=== PATIENT | female | born 1965 | race Caucasian/White ===

== ENCOUNTER 2018-04-05 14:49 | Outpatient (CLI) | payer OTHER ==
[2018-04-05] MEDS ORDERED: Iopamidol 370 76% 100 ML VIAL ONE (16:19)
--- NOTE | 2018-04-05 17:08 | CT ---
CT OF THE ABDOMEN AND PELVIS WITH IV CONTRAST 04/05/18 INDICATION: Right lower quadrant abdominal pain with history of diverticulosis. History of cholecystectomy, appen dectomy, hysterectomy and hernia repair. COMPARISON: Prior CT of the abdomen and pelvis dated 03/26/14 from [facility]. FINDINGS: The lung bases are clear. No focal hepatic lesion is evident. Gallbladder is surgically absent. The pancreas, adrenal glands, a nd spleen appear within normal limits. Kidneys are normal appearing. There is a small cyst seen invol ving the mid left kidney. No hydronephrosis is evident. No free fluid or enlarged lymph nodes are not ed. There is scattered diverticula involving the colon without evidence of active diverticulitis. There i s a mild amount of retained stool within the colon. The appendix is surgically absent. The uterus is surgically absent. The adnexa are not definitely seen and may be surgically absent. The bladder is de compressed. No definite acute osseous abnormality is evident. IMPRESSION: No CT explanation for the patient's abdominal pain. POS: ANITHA
== END 2018-04-05 14:50 | disposition home or self-care (01) ==
LOC: BICCT 14:49
PROVIDERS: ATTEND Physician Assistant Medical
DX: K57.30 Diverticulosis of large intestine without perforation or abscess without bleeding (principal); R10.31 Right lower quadrant pain
CPT/HCPCS: 74177

== ENCOUNTER 2018-06-28 10:45 | Outpatient (CLI) | payer OTHER ==
--- NOTE | 2018-06-28 12:03 | BD ---
DEXA Bone Density History: 52-year-old post-menopausal female for screening. Comparison: 04-12-12 Lumbar Spine: BMD (g/cm2) L1 0.810 T-Score: -1.6 L2 0.939 T-Score: -0.8 L3 0.870 T-Score: -1.9 L4 0.805 T-Score: -2.3 L1-L4 0.855 T-Score: -1.7 Femoral Neck: 0.587 T-Score: -2.4 Total Femur: 0.773 T-Score: -1.4 Impression: Osteopenia. This patient has an approximately 6x increased risk for fracture when compared with young patients with normal bone mineral density. POS: C
== END 2018-06-28 10:46 | disposition home or self-care (01) ==
LOC: BICMAMMO 10:45
PROVIDERS: ATTEND Internal Medicine Rheumatology
DX: M81.0 Age-related osteoporosis without current pathological fracture (principal); M85.89 Other specified disorders of bone density and structure, multiple sites
CPT/HCPCS: 77080

== ENCOUNTER 2019-03-31 06:31 | Outpatient (CLI) | payer OTHER ==
[2019-03-31 13:30] LABS: #Basophils 0.1 thou/uL (0.0-0.2); #Eosinphils 0.1 thou/uL (0.0-0.7); #Lymphocytes 3.6 thou/uL (1.20-3.40); #Monocytes 0.8 thou/uL (0.11-0.59); #Neutrophils 5.3 thou/uL (1.40-6.50); %Basophils 0.7 % (0.0-1.0); %Eosinophils 1.4 % (0.0-10.0); %Lymphocytes 36.5 % (21.0-51.0); %Monocytes 8.1 % (0.0-10.0); %Neutrophils 53.3 % (42.0-75.0); Hemoglobin 12.7 g/dL (12.0-16.0); Mean Corpuscular HGB CONC 33.3 g/dL (32.0-36.0); Mean Corpuscular Hemoglobin 30.3 pg (27.0-31.0); Mean Platelet Volume 8.2 fL (7.4-10.4); Platelet Count 267 thou/uL (130-400); RBC Distribution Width 11.2 % (11.5-14.5); Red Blood Cell (RBC) Count 4.18 mill/uL (4.20-5.40); White Blood Cell (WBC) Count 9.9 thou/uL (4.8-10.8)
[2019-03-31 13:46] LABS: Anion Gap 11 mmol/L (10-20); BUN (Urea Nitrogen) 17 mg/dL (9.8-20.1); Calc. Creatinine Clearance 0 mL/min (70-130); Calcium 9.4 mg/dL (7.8-10.44); Carbon Dioxide 26 mmol/L (22-29); Chloride 106 mmol/L (98-107); Estimated GFR-MDRD 66; Glucose 80 mg/dL (70-105); Potassium 3.7 mmol/L (3.5-5.1); Sodium 139 mmol/L (136-145)
== END 2019-03-31 06:32 | disposition home or self-care (01) ==
LOC: LABBT 06:31
PROVIDERS: ATTEND Specialist
DX: Z01.812 Encounter for preprocedural laboratory examination (principal); K44.9 Diaphragmatic hernia without obstruction or gangrene; K21.9 Gastro-esophageal reflux disease without esophagitis
CPT/HCPCS: 80048; 85025

== ENCOUNTER 2019-04-08 06:04 | Day surgery (SDC) | payer OTHER ==
[2019-03-31 11:39] VITALS: BMI 30.1
[2019-04-08] MEDS ORDERED: cefOXitin 2 GM VIAL ONE (06:22)
[2019-04-08] MEDS ORDERED: Sodium Chloride 0.9% 100 ML ONE (06:22)
[2019-04-08] MEDS ORDERED: Ketorolac Tromethamine 30 MG/ML VIAL ONE (06:23)
[2019-04-08] MEDS ORDERED: Lidocaine 2% w/Epinephrine 1:200K 20 ML VIAL ONE (07:15)
[2019-04-08] MEDS ORDERED: Bupivacaine PF 0.5% 30 ML VIAL ONE (07:15)
[2019-04-08] MEDS ORDERED: Fentanyl 100 MCG/2 ML VIAL ONE ×3 (07:30→10:58)
[2019-04-08] MEDS ORDERED: Midazolam HCl 2 mg/2 ml Vial ONE (07:46)
[2019-04-08] MEDS ORDERED: Scopolamine 1.5 mg/72 hour Patch ONE (07:46)
[2019-04-08] MEDS ORDERED: Meperidine HCl/PF 25 MG/ML VIAL SLOW IVP PRN (09:46)
[2019-04-08] MEDS ORDERED: Morphine Sulfate 2 MG/ML SYRINGE SLOW IVP PRN (09:46)
[2019-04-08] MEDS ORDERED: Promethazine HCl 25 MG/ML VIAL IM PRN (09:46)
[2019-04-08] MEDS ORDERED: HYDROmorphone 2 MG/ML VIAL SLOW IVP PRN (09:46)
[2019-04-08] MEDS ORDERED: Promethazine HCl 25 MG/ML VIAL SLOW IVP PRN (09:46)
[2019-04-08] MEDS ORDERED: PACU-Morphine 4MG/ML VIAL SLOW IVP PRN (09:46)
[2019-04-08] MEDS ORDERED: Ondansetron HCl/PF 4 MG/2 ML Vial IVP PRN (09:46)
[2019-04-08] MEDS ORDERED: Promethazine HCl 25 MG/ML VIAL ONE (10:10)
[2019-04-08] MEDS ORDERED: hydrALAZINE 20 MG/ML VIAL SLOW IVP PRN (14:25)
[2019-04-08] MEDS ORDERED: Ondansetron PF 4 MG/2 ML Vial IVP PRN (14:25)
[2019-04-08] MEDS ORDERED: Dextrose 50% Abboject 50 ML SYRINGE SLOW IVP PRN (14:25)
[2019-04-08] MEDS ORDERED: Dextrose 5% in Water 1,000 ML IV PRN (14:25)
[2019-04-08] MEDS ORDERED: diphenhydrAMINE 50 MG/ML VIAL ONE (15:36)
[2019-04-08] MEDS: D5 1/2 NS w/20 mEq KCL 1,000 ML IV SCH ×2 (15:36→23:33)
[2019-04-08] MEDS ORDERED: PROPOFOL 200 MG/20 ML VIAL ONE (15:36)
[2019-04-08] MEDS ORDERED: Glycopyrrolate 0.2 MG/ML 5 ML SYRINGE ONE (15:36)
[2019-04-08] MEDS ORDERED: Dexamethasone 20 MG/5 ML VIAL ONE (15:36)
[2019-04-08] MEDS ORDERED: Rocuronium Bromide 10 MG/ML (10ML VIAL) ONE (15:36)
[2019-04-08] MEDS ORDERED: Ondansetron PF 4 MG/2 ML Vial ONE (15:36)
[2019-04-08] MEDS ORDERED: Succinylcholine Chloride 20 MG/ML 10 ml SYRINGE FS ONE (15:36)
[2019-04-08] MEDS: Morphine 2 MG/ML SYRINGE SLOW IVP PRN ×2 (15:41→20:25)
[2019-04-08] MEDS ORDERED: traZODone HCl 50 MG TAB PO SCH (21:00)
[2019-04-08] MEDS ORDERED: Enoxaparin Sodium 40 MG/0.4 ML SYRINGE SC SCH (21:00)
[2019-04-08] MEDS: Famotidine 20 MG TAB PO SCH (21:34)
[2019-04-09] MEDS: Morphine 2 MG/ML SYRINGE SLOW IVP PRN (01:33)
[2019-04-09] MEDS ORDERED: Morphine 2 MG/ML SYRINGE ONE (06:49)
[2019-04-09] MEDS ORDERED: ALPRAZolam 0.5 MG TAB PO SCH (09:00)
[2019-04-09] MEDS ORDERED: FLU VACC QS2019-20(6MOS UP)/PF 60 MCG/0.5 ML SYRINGE IM ONE (09:00)
[2019-04-09] MEDS: Famotidine 20 MG TAB PO SCH (12:32)
[2019-04-09] MEDS: D5 1/2 NS w/20 mEq KCL 1,000 ML IV SCH (12:33)
[2019-04-09 13:36] VITALS: BP 141/86; TEMP 97.5
[2019-04-09 19:36] LABS: #Lymphocytes 2.1 thou/uL (1.20-3.40); #Monocytes 1.1 thou/uL (0.11-0.59); #Neutrophils 12.8 thou/uL (1.40-6.50); %Basophils 0.1 % (0.0-1.0); %Eosinophils 0.1 % (0.0-10.0); %Lymphocytes 12.8 % (21.0-51.0); %Monocytes 6.7 % (0.0-10.0); %Neutrophils 80.2 % (42.0-75.0); Hemoglobin 13.4 g/dL (12.0-16.0); Mean Corpuscular HGB CONC 33.8 g/dL (32.0-36.0); Mean Corpuscular Hemoglobin 30.8 pg (27.0-31.0); Mean Corpuscular Volume 91.2 fL (78.0-98.0); Mean Platelet Volume 8.3 fL (7.4-10.4); Platelet Count 307 thou/uL (130-400); RBC Distribution Width 11.1 % (11.5-14.5); Red Blood Cell (RBC) Count 4.34 mill/uL (4.20-5.40); White Blood Cell (WBC) Count 15.9 thou/uL (4.8-10.8)
--- NOTE | 2019-04-10 11:44 | OP ---
DATE OF PROCEDURE: 04/08/2019 PREOPERATIVE DIAGNOSIS: Hiatal hernia with substantial gastroesophageal reflux disease. POSTOPERATIVE DIAGNOSIS: Hiatal hernia with substantial gastroesophageal reflux disease. PROCEDURE PERFORMED: Laparoscopic Ev fundoplication. ANESTHESIA: General endotracheal. INDICATIONS: Patient is a 53-year-old white female. She presented with ongoing severe episodes of gastroesophageal reflux and a recognized hiatal hernia. She is taken to the operative room at this time for laparoscopic Ev fundoplication. DESCRIPTION OF OPERATION: Informed consent was obtained. Patient is taken to the operating room, where general endotracheal anesthesia was obtained with the patient in supine position. She was then placed in the split leg position and the abdomen was prepped with ChloraPrep and draped in sterile fashion. Local anesthetic was infiltrated using 0.25% Marcaine with epinephrine. A 5 mm supraumbilical incision was created through which a Veress needle was passed in the peritoneal cavity. Pneumoperitoneum established using carbon dioxide up to a pressure of 15 mmHg. A 5 mm trocar port site was established in the same incision. Laparoscopic camera was passed this port. Under direct vision, 4 additional ports were placed including bilateral subcostal 5 mm ports, a left epigastric 11 mm port, and a right epigastric 5 mm port. The triangle snake retractor was passed into the right lower port and used to elevate the left lobe of the liver. There was an easily visualized hiatal hernia. I began dissection on the right side by incising the pars flaccida. I identified the right deni and carefully dissected this. I was able to dissect behind the esophagus and identified the left deni. I then turned my attention to the greater curvature of stomach. This was mobilized along the upper third of the stomach, taking down all fatty and vascular tissue using the LigaSure in an ascending fashion, including the short gastric vessels. The left deni was again identified and carefully cleared. I then cleared the anterior aspect of the hiatus and fully dissected the esophagus into the hiatus. I then dissected the esophagus as it entered the mediastinum and cleared at least 4 cm of the esophagus up into the mediastinum. With a Qing drain passed around the esophagus, it was easily mobilized into the abdominal cavity. A 54-Turkmen bougie was placed into the stomach under direct vision. The hiatal hernia was then repaired using 2 interrupted sutures of 0 Bralon. These were secured with the tie knot device. I then pulled the mobilized fundus through the retroesophageal window and constructed a floppy wrap securing the fundus on the right side back to the fundus on the left side with 3 interrupted sutures of 0 Bralon placed at 1 cm apart. Upper and lower sutures incorporated bites of the anterior aspect of the esophagus. I placed 2 additional collar sutures of 0 Bralon between the wrap and the hiatus at the 1030 and 130 Radians and finally I placed a posterior gastropexy to the hiatal closure. Upon completion, the wrap was well constructed and under no tension and incorporated a 3 to 4 cm segment of intraabdominal esophagus. Blood loss had been negligible. Patient tolerated the procedure well. All ports were removed under direct vision. The fascial defect at the 11 mm port site was closed with 0 Vicryl suture using a GraNee needle. Pneumoperitoneum was carefully evacuated. 0.25% Marcaine with epinephrine was infiltrated at each port site. Skin edges were approximated with 4-0 Monocryl subcuticular suture. Dermabond was placed externally. There were no complications. Patient tolerated the procedure well and was taken to recovery room in stable condition. Job ID: [id number]
== END 2019-04-09 14:10 | disposition home or self-care (01) ==
LOC: SDC 06:04 → EDSTATUS 11:15 → SURG A 14:09 → SDC 04-09 14:10
PROVIDERS: ATTEND Specialist
PROC: 0DV44ZZ Restriction of Esophagogastric Junction, Percutaneous Endoscopic Approach (ICD-10-PCS; principal; 2019-04-09)
DX: K44.9 Diaphragmatic hernia without obstruction or gangrene (principal); K21.9 Gastro-esophageal reflux disease without esophagitis; F41.9 Anxiety disorder, unspecified; M81.0 Age-related osteoporosis without current pathological fracture; Z79.899 Other long term (current) drug therapy
CPT/HCPCS: 85025; J0131; J0694; J1100; J1200; J1650; J1885; J2250; J2270; J2405; J2550; J2704; J3010; J3490; S0020

== ENCOUNTER 2019-06-30 07:37 | Outpatient (CLI) | payer OTHER ==
--- NOTE | 2019-06-30 10:05 | BD ---
DEXA BONE DENSITY STUDY: Date: 06/30/2019 HISTORY: Age-related osteoporosis without current pathologic fracture. COMPARISON: Study from 06/28/2018. FINDINGS: Lumbar Spine: BMD (g/cm2) L1 0.796 T-Score: -1.8 Z-Score: -0.9 L2 0.889 T-Score: -1.3 Z-Score: -0.3 L3 0.850 T-Score: -2.1 Z-Score: -1.1 L4 0.853 T-Score: -1.9 Z-Score: -0.9 L1-L4 0.847 T-Score: -1.8 Z-Score: -0.8 Change from comparison is -0.9%. Left Femoral Neck: 0.572 T-Score: -2.5 Z-Score: -1.5 Total Femur: 0.781 T-Score: -1.3 Z-Score: -0.7 Change from comparison is +1.1%. WHO Classification: Osteoporosis. IMPRESSION: Osteoporosis with elevated fracture risk. POS: OFF
== END 2019-06-30 07:38 | disposition home or self-care (01) ==
LOC: BICMAMMO 07:37
DX: M81.0 Age-related osteoporosis without current pathological fracture (principal)
CPT/HCPCS: 77080

== ENCOUNTER 2024-02-14 08:31 | Outpatient (CLI) | payer BC | END 2024-02-14 08:32 | disposition home or self-care (01) | LOC: BICMAMMO 08:31 | PROVIDERS: ATTEND Internal Medicine | DX: N64.89 Other specified disorders of breast (principal) | CPT/HCPCS: G0279 ==

== ENCOUNTER 2024-04-17 13:01 | Outpatient (CLI) | payer BC | END 2024-04-17 13:02 | disposition home or self-care (01) | LOC: BICMRI 13:01 | PROVIDERS: ATTEND Internal Medicine | DX: N63.41 Unspecified lump in right breast, subareolar (principal); N64.89 Other specified disorders of breast | CPT/HCPCS: A9577; C8908 ==

== ENCOUNTER 2024-12-22 12:30 | Outpatient (CLI) | payer BC | END 2024-12-22 12:31 | disposition home or self-care (01) | LOC: SCSMRI 12:30 | PROVIDERS: ATTEND Family Medicine Sports Medicine | DX: M47.816 Spondylosis without myelopathy or radiculopathy, lumbar region (principal); M47.817 Spondylosis without myelopathy or radiculopathy, lumbosacral region | CPT/HCPCS: 72148 ==